=== PATIENT | female | born 1935 | race Caucasian/White ===

== ENCOUNTER → 2017-12-02 | Outpatient (CLI) | payer MEDICARE, OTHER | END | disposition home or self-care (01) | LOC: PCVCCLINIC 16:07 | PROVIDERS: ATTEND Nuclear Medicine Nuclear Cardiology | DX: I13.0 Hypertensive heart and chronic kidney disease with heart failure and stage 1 through stage 4 chronic kidney disease, or unspecified chronic kidney disease (principal); I50.9 Heart failure, unspecified; N18.4 Chronic kidney disease, stage 4 (severe); I48.2 Chronic atrial fibrillation; M25.441 Effusion, right hand; L03.113 Cellulitis of right upper limb; Z95.0 Presence of cardiac pacemaker; E78.5 Hyperlipidemia, unspecified; Z79.01 Long term (current) use of anticoagulants; Z79.899 Other long term (current) drug therapy | CPT/HCPCS: G0463 ==

== ENCOUNTER → 2017-12-02 | Outpatient (CLI) | payer MEDICARE, OTHER ==
--- NOTE | 2017-12-02 17:39 | PCVCIMAG ---
EXAM: VENOUS DUPLEX RIGHT UPPER EXTREMITY INDICATION: Arm pain and swelling. FINDINGS: Right arm: No thrombus in the basilic, cephalic, brachial, axillary, or subclavian veins. These veins show phasic flow. IMPRESSION: No evidence of deep venous thrombosis in the right upper extremity as detailed above. LOC:[id number]
--- NOTE | 2017-12-02 17:41 | PCVCIMAG ---
EXAM: ARTERIAL DUPLEX RIGHT UPPER EXTREMITY INDICATION: Right arm pain. FINDINGS: Right arm: The subclavian, axillary, brachial, radial, and ulnar arteries all show satisfactory patency. IMPRESSION: Arterial duplex of the right arm is unremarkable. No evidence of flow-limiting arterial stenosis. LOC:[id number]
== END | disposition home or self-care (01) ==
LOC: PCVCIMAG 16:24
PROVIDERS: ATTEND Nuclear Medicine Nuclear Cardiology
DX: L03.113 Cellulitis of right upper limb (principal); M79.89 Other specified soft tissue disorders; I48.2 Chronic atrial fibrillation; I12.9 Hypertensive chronic kidney disease with stage 1 through stage 4 chronic kidney disease, or unspecified chronic kidney disease; N18.4 Chronic kidney disease, stage 4 (severe); Z95.0 Presence of cardiac pacemaker; Z79.899 Other long term (current) drug therapy
CPT/HCPCS: 93931; 93971; G0463

== ENCOUNTER → 2017-12-17 | Outpatient (CLI) | payer MEDICARE, OTHER | END | disposition home or self-care (01) | LOC: PCVCCLINIC 12:54 | PROVIDERS: ATTEND Nuclear Medicine Nuclear Cardiology | DX: L03.011 Cellulitis of right finger (principal); M79.89 Other specified soft tissue disorders; D68.59 Other primary thrombophilia; I48.2 Chronic atrial fibrillation; Z74.09 Other reduced mobility; Z79.899 Other long term (current) drug therapy | CPT/HCPCS: G0463 ==